=== PATIENT | female | born 1945 | race Caucasian/White ===

== ENCOUNTER 2022-05-25 19:15 | Outpatient (CLI) | payer OTHER, SELFPAY | END 2022-05-25 19:16 | disposition home or self-care (01) | LOC: AMB 05-28 15:34 | PROVIDERS: PCP Family Medicine; Visit Provider Family Medicine | DX: S09.90XA Unspecified injury of head, initial encounter (principal); W07.XXXA Fall from chair, initial encounter; Y92.129 Unspecified place in nursing home as the place of occurrence of the external cause | CPT/HCPCS: A0425; A0427 ==

== ENCOUNTER 2022-05-25 19:35 | Emergency (ER) | payer OTHER, SELFPAY ==
[2022-05-25 19:41] VITALS: BP 128/72; PULSE 72; RESP 18; TEMP 36.6; O2SAT 96
--- NOTE | 2022-05-25 19:46 | CRLHL7_ITS ---
For Patients: As a result of the Century Cures Act, medical imaging exams and procedure reports are released immediately into your electronic medical record. You may view this report before your referring provider. If you have questions, please contact your health care provider. DATE: 05/25/2022. CLINICAL HISTORY: Fall; dementia. TECHNIQUE: Standard helical CT image acquisition of the brain was performed. COMPARISON: None available. FINDINGS: Patient motion artifact degrades image quality, limited the assessment of small volume intracranial hemorrhage, particularly at the periphery of the brain. Given this, no definite CT evidence of acute intracranial hemorrhage, extra-axial collection, mass effect or midline shift. Mejias-white matter differentiation is preserved. [id number] generalized parenchymal volume loss with resulting prominence of cerebral sulci and the ventricular system. Patchy hypoattenuation within the white matter of both hemispheres likely reflects sequela of chronic small vessel ischemia. Intracranial atherosclerotic calcification. No displaced calvarial fracture. The orbits are unremarkable. Mild mucosal thickening of the inferior right maxillary sinus. The mastoid air cells are unremarkable. The soft tissues are unremarkable. IMPRESSION: 1. Patient motion artifact degrades image quality and limits for the assessment of small volume intracranial hemorrhage, particularly at the periphery of the brain. Given this, no definite CT evidence of acute intracranial abnormality or closed-head injury. 2. Senescent changes including generalized parenchymal volume loss and findings likely reflecting sequela of chronic small vessel ischemia. Please note that all CT scans at this facility use dose modulation, iterative reconstruction, and/or weight-based dosing when appropriate to reduce radiation dose to as low as reasonably achievable. Dictated by Ger Dumont MD @ 05/25/2022 9:14:30 PM (Electronically Signed)
--- NOTE | 2022-05-25 19:46 | CRLHL7_ITS ---
For Patients: As a result of the Cures Act, medical imaging exams and procedure reports are released immediately into your electronic medical record. You may view this report before your referring provider. If you have questions, please contact your health care provider. DATE: 05/25/2022. CLINICAL HISTORY: Trauma. TECHNIQUE: Helical CT acquisition of the cervical spine was performed. Coronal and sagittal reformations were performed and interpreted. COMPARISON: None available. FINDINGS: There is no evidence of acute displaced fracture or traumatic malalignment of the cervical spine. The facets are well aligned. Mild compression deformity of the T2 vertebral body of unknown chronicity. Vertebral body heights are otherwise maintained without evidence of significant compression deformity. No evidence of significant trauma at the craniocervical junction. Cervical spondylosis. Uncovertebral hypertrophy and facet arthropathy results in varying degrees of multilevel foraminal narrowing. No evidence of severe spinal canal stenosis. The visualized prevertebral soft tissues are unremarkable. The visualized lung apices are unremarkable. IMPRESSION: 1. No acute displaced fracture or traumatic malalignment of the cervical spine. 2. Mild compression deformity of the T2 vertebral body which appears to be chronic. If there is point tenderness on physical examination, however, MRI of the thoracic spine could be obtained to exclude the presence of marrow edema which would suggest an acute/subacute chronicity. Please note that all CT scans at this facility use dose modulation, iterative reconstruction, and/or weight-based dosing when appropriate to reduce radiation dose to as low as reasonably achievable. Dictated by Ger Dumont MD @ 05/25/2022 9:20:07 PM (Electronically Signed)
--- NOTE | 2022-05-25 20:30 | ED.WOUNDLAC ---
HPI - Wound/Laceration General Chief Complaint: Laceration/Wound Stated Complaint: Fall Time Seen by Provider: 05/25/22 19:51 History of Present Illness HPI narrative: Pt is a 76 year old woman who tipped forward in her wheelchair tonight at [facility] striking her head on a countertop. Pt suffered a flap laceration on the top of her head with a total length of 12 cm. Pt by reports did not lose consciousness. Pt was helped up by staff and was brought in by ambulance. Pt has a history of dementia and is unable to provide any further information. Pt upon arrival was taken to CT for a CT of the head and cervical spine. Pt appears to be at her baseline. No further history is available. No blood thinners or antiplatelet agents. Related Data Home Medications Medication Instructions Recorded Confirmed gabapentin 300 mg capsule 300 mg PO TID 05/25/22 05/25/22 levothyroxine 125 mcg tablet 125 mcg PO DAILY 05/25/22 05/25/22 lorazepam 0.5 mg tablet 0.25 mg PO BID 05/25/22 05/25/22 methadone 10 mg tablet 10 mg PO Q8H 05/25/22 05/25/22 methadone 5 mg tablet 2.5 mg PO TID 05/25/22 05/25/22 morphine concentrate 100 mg/5 mL 15 mg PO Q2H PRN 05/25/22 05/25/22 (20 mg/mL) oral solution polyethylene glycol 3350 17 17 g PO DAILY PRN 05/25/22 05/25/22 gram/dose oral powder (Gavilax) sennosides 8.6 mg tablet (senna) 25.8 mg PO BID 05/25/22 05/25/22 sertraline 100 mg tablet 100 mg PO Q24H 05/25/22 05/25/22 Allergies Allergy/AdvReac Type Severity Reaction Status Date / Time rosuvastatin Allergy Mild Rash Verified 05/25/22 20:29 Review of Systems Status of ROS: Reports: unobtainable due to mental status [facility] Medical History (Updated 05/25/22 @ 21:19 by Guillermo Solares MD) Atherosclerotic heart disease of [place] coronary artery without angina pectoris CAD (coronary artery disease) Chronic kidney disease, stage 3 Constipation Dementia Dysphagia, oral phase ZOEY (generalized anxiety disorder) GERD (gastroesophageal reflux disease) Hyperlipidemia Hypertension Hypothyroidism Major depressive disorder Peripheral vascular disease, unspecified Repeated falls TIA (transient ischemic attack) Social History Smoking Status: Smoker, status unknown Exam Narrative: Exam Narrative: EXAM GENERAL: Patient appears cachectic and frail EYES: No scleral icterus. THYROID: no thyroid nodules or thyromegaly. LYMPH: No supraclavicular or cervical lymphadenopathy. SKIN: Large flap laceration noted on the scalp as described above. EXT: No dependent lower extremity pedal edema. HEART: Regular rate and rhythm with no murmurs, rubs, or gallops. LUNGS: Clear to auscultation bilaterally with no crackles or wheezes. ABD: Soft, non tender, non distended. PSYCH: Good eye contact, speech is not pressured. Neuro: CN 2-12 grossly intact no focal defects Const: Vital Signs, click to edit/add: Vital Signs - 24 hr 05/25/22 19:41 Temperature 97.9 F Pulse Rate [Right Pulse Oximeter] 72 Respiratory Rate 18 Blood Pressure [Ri ght Upper Arm] 128/72 Pulse Oximetry 96 Oxygen Delivery Me thod Room Air Course Course Hospital Course: After cleaning the laceration with soap and water, I did close the laceration with 10 yudy with good wound approximation. Tdap updated. CT of head and cervical spine both negative upon my review. Vital Signs Vital signs: Initial Vital Signs Temperature 97.9 F 05/25/22 19:41 Temperature Source Temporal Artery Scan 05/25/22 19:41 Pulse Rate 72 05/25/22 19:41 Respiratory Rate 18 05/25/22 19:41 Blood Pressure 128/72 05/25/22 19:41 Blood Pressure Mean 90 05/25/22 19:41 Blood Pressure Position Supine 05/25/22 19:41 Pulse Oximetry 96 05/25/22 19:41 Oxygen Delivery Method 05/25/22 19:41 Vital Signs Temperature 97.9 F 05/25/22 19:41 Pulse Rate 72 05/25/22 19:41 Respiratory Rate 18 05/25/22 19:41 Blood Pressure 128/72 05/25/22 19:41 Pulse Oximetry 96 05/25/22 19:41 Oxygen Delivery Method 05/25/22 19:41 Temperature 97.9 F 05/25/22 19:41 Pulse Rate 72 05/25/22 19:41 Respiratory Rate 18 05/25/22 19:41 Blood Pressure 128/72 05/25/22 19:41 Pulse Oximetry 96 05/25/22 19:41 Oxygen Delivery Method 05/25/22 19:41 MDM - Wound/Laceration MDM Narrative Medical decision making narrative: Pt is a 76 year old woman with severe dementia who presents with a scalp laceration after a fall. Pt was brought to the ED in her usual state of health with the exception of the laceration. Pt had an unremarkable head and cervical spine CT. Laceration was cleaned and closed with 10 yudy. Tdap was updated. Pt has returned to her usual level of functioning and will return to the halfway. Plan to remove the yudy in 10 days. Differential Diagnosis Differential diagnosis: Likely laceration, abrasion and avulsion of skin Medical Records Attestation: I reviewed the patient's medical records. Discharge Plan Discharge Clinical Impression: Laceration Patient Disposition: Xfer [facility] Discharge Location: [facility] Condition: Stable Instructions: Laceration (ED) Additional Instructions: [place] out in 10 days Activity Level: Activity as Tolerated Discharge Diet: Regular Prescriptions: No Action levothyroxine 125 mcg tablet 125 mcg PO DAILY sertraline 100 mg tablet 100 mg PO Q24H lorazepam 0.5 mg tablet 0.25 mg PO BID sennosides [senna] 8.6 mg tablet 25.8 mg PO BID gabapentin 300 mg capsule 300 mg PO TID methadone 10 mg tablet 10 mg PO Q8H Label Comments: take 12.5 mg by mouth three times a day methadone 5 mg tablet 2.5 mg PO TID Label Comments: take 12.5 mg by mouth three times a day polyethylene glycol 3350 [Gavilax] 17 gram/dose powder 17 g PO DAILY PRN morphine concentrate 100 mg/5 mL (20 mg/mL) solution 15 mg PO Q2H PRN Stand Alone Forms: [facility] Info Instructions
--- NOTE | 2022-05-25 20:53 | ED.NURSE ---
Wound irrigated with 1,000ml NS.
[2022-05-25] MEDS: TETANUS/DIPHTH/PERTUSSIS 0.5 ML SYRINGE IM (21:16)
[2022-05-25 21:39] VITALS: BP 104/65; PULSE 76; RESP 16; O2SAT 99
--- NOTE | 2022-05-25 22:01 | ED.NURSE ---
Reports of visit findings and care instructions given via telephone to RN Paulina. Patient sent via EMS back to [facility].
== END 2022-05-25 22:04 ==
PROVIDERS: Emergency Provider Internal Medicine; PCP Family Medicine
DX: S01.01XA Laceration without foreign body of scalp, initial encounter (principal); W22.8XXA Striking against or struck by other objects, initial encounter
CPT/HCPCS: 12004; 70450; 72125; 90471; 90715; 99283

== ENCOUNTER 2022-05-25 21:51 | Outpatient (CLI) | payer OTHER, SELFPAY | END 2022-05-25 21:52 | disposition home or self-care (01) | LOC: AMB 06-15 11:30 | PROVIDERS: PCP Family Medicine; Visit Provider Internal Medicine | DX: F03.90 Unspecified dementia, unspecified severity, without behavioral disturbance, psychotic disturbance, mood disturbance, and anxiety (principal) | CPT/HCPCS: A0425; A0428 ==